=== PATIENT | male | born 1985 | race Hispanic/Latino ===

== ENCOUNTER 2025-04-05 11:19 | Emergency (ER) | payer OTHER, SELFPAY ==
[2025-04-05 11:20] VITALS: BP 139/100; PULSE 60; RESP 16; TEMP 36.7; O2SAT 100; BMI 24.3
--- NOTE | 2025-04-05 12:07 | RAD_ITS ---
PROCEDURE: FINGER(S) MIN 2 VIEWS 04/05/2025 REASON FOR EXAM: FINGER LACERATION TECHNIQUE: Procedure Code: RADFIN Modality: DX Procedure: FINGER(S) MIN 2 VIEWS Laterality: Left index finger. COMPARISON: None FINDINGS: Bones: No fracture seen. Joints: Normal alignment. Soft tissues: Soft tissue laceration. No radiopaque foreign body is seen. Other: RAD/Finger(s) Min 2 Views IMPRESSION: Soft tissue laceration. No radiopaque foreign body is seen. No fracture. Reading Location: [place] [id number]
--- NOTE | 2025-04-05 12:12 | EX.ED.UPPERE ---
HPI History of Present Illness Chief Complaint: Laceration Narrative Narrative: Patient is a 39-year-old male presenting to the emergency department for a left index finger laceration. Patient is Mongolian-speaking and friend is at bedside and both friend and patient feel comfortable with her translating. He was offered a iPad compensation intern but declines. Patient is unsure when his last tetanus shot was. He states that he works at [employer] and a machine cut his left finger. EMS was called and he was given 50 mcg of fentanyl prior to arrival. He denies any numbness to his finger. Denies any other injuries. He is right-handed. [facility] Medical History no medical history Home Medications ?Medication ?Instructions ?Recorded ?Last Taken ?Type cephalexin 500 mg capsule 500 mg PO Q6 5 days #20 CAPSULES 04/05/25 Unknown Rx Allergy/AdvReac Type Severity Reaction Status Date / Time No Known Allergies Allergy Verified 04/05/25 11:25 Social History Smoking Status: Never smoker ROS ROS ED ROS Narrative see HPI EXAM Physical Exam Narrative Exam Narrative: Vital signs: Reviewed General: Alert and orientedx3. No acute distress. Well appearing, nontoxic. HEENT: Head is normocephalic and atraumatic, sinuses nontender, pupils equal round and reactive. Nares are patent. Oropharynx and throat exams normal. Neck: Supple without lymphadenopathy nontender Cardiovascular: Regular rate and rhythm, no murmurs. No rubs or gallops. Normal S1 and S2 Respiratory: Clear to auscultation bilaterally. No wheezes, rales, rhonchi Abdominal: Soft and nontender. Normal bowel sounds. No guarding or rebound. Nonsurgical abdomen Extremities: There is a fairly deep laceration to the radial side of the dorsal left index finger extending from the distal portion of the proximal phalanx to the distal tip of the distal phalanx. There is no tendon involvement. No bone is exposed. No foreign body on wound exploration. Radial pulse intact. Patient has full extensor mechanisms of the DIP and PIP. Normal johnathan test. There is no nailbed involvement. No subungual hematoma. Normal sensation in radial, median and ulnar distributions. The rest of the physical exam is unremarkable Const Vital Signs: 04/05/25 11:20 Temperature 98.0 F Temperature Source Temporal Pulse Rate 60 Respiratory Rate 16 Blood Pressure 139/100 H Blood Pressure Mean 113 Pulse Ox 100 Oxygen Delivery Method Room Air MDM MDM MDM Narrative Medical decision making narrative: Patient is a 39-year-old male presenting to the emergency department for a finger laceration. Patient was seen and examined. Vitals are stable. Patient resting in bed comfortably in no acute distress. Patient's tetanus vaccine was updated. Offered something for pain control but patient declines at this time. X-ray imaging was ordered to rule out any fracture or radiopaque foreign body. X-ray reviewed by myself, no radiopaque foreign body or fractures. Radiology read in agreement. Patient was consented for a digital block and laceration repair. Wound was irrigated copiously. Thirteen 4-0 Ethilon simple erupted sutures were placed. Patient tolerated well. Patient was given extensive wound care instructions including keeping the finger clean and dry. He was instructed to watch for signs of infection which were discussed. He was placed in a finger splint to prevent any reopening of the wound or breakage of the sutures with any flexion. He will be started on prophylactic antibiotics given the fairly deep wound and unknown if the blade was clean. Patient discharged from the Emergency Department. I do not feel that the patient's evaluation reveals any acute reason for admission at this time. I instructed them to either follow-up with their primary care physician or promptly return to the Emergency Department for reevaluation should symptoms worsen or new symptoms develop. I explained what symptoms would indicate the need to return to the emergency department. Shared decision making was used. The patient voiced understanding of the treatment plan and is agreeable with it. Clinical impression: Finger laceration History & Record Review Discussion w/independent historian: Patient Discharge Plan Triage Chief Complaint: Laceration ED Provider: Yanely Caldera Dx/Rx/DC Orders Clinical Impression: Finger laceration Instructions: ED Laceration Extremity Prescriptions: New cephalexin 500 mg capsule 500 mg PO Q6 5 Days Qty: 20 0RF Primary Care Provider: Care Physician,No Primary Referrals: Rohith Chen MD [Med Staff - Active Staff, Family Practice] - 5-7 Days Care Physician,No Primary [Primary Care Provider, Medical] Activity Restrictions/Additional Instructions: Keep the wound clean and dry. Keep it in this finger splint for the next 5 days to help prevent any bending of the finger to help the skin heal correctly. Watch for signs of infection which include redness, drainage or warmth. If any of these occur you need to return to the emergency department immediately. Take the antibiotics as prescribed. You need to have the sutures removed in about 7 days by your primary care doctor. If you do not have 1 you can follow-up with the 1 below. Your evaluation in the Emergency Department did not reveal any acute reason for admission. However, I want to emphasize that you may be early in the course of a disease process or illness even if it is not present. For this reason you should follow-up within 24 hours for reevaluation with either your primary care physician or if necessary back here in the Emergency Department. You should return to the Emergency Department immediately if your symptoms worsen or new symptoms develop. Print Language: Mongolian Disposition Disposition: Home, Self Care Discharge Date/Time: 04/05/25 14:29
[2025-04-05 12:19] VITALS: BP 132/81; PULSE 84
[2025-04-05] MEDS: Lidocaine 2% (20 ml mdv) 20 ML Vial 10 ML INFILT (12:37)
[2025-04-05 13:00] VITALS: BP 122/74
[2025-04-05 14:07] VITALS: BP 114/62; PULSE 74; RESP 16; TEMP 37; O2SAT 100
--- NOTE | 2025-04-05 14:28 | ED.RN ---
Discharge instructions were reviewed with patient with our [employer] M[employer]. All questions answered. Pt. instructed to go to [facility] at this time to get drug and alcohol screen for workers comp and was given address to building. Pt. also give work status for, one for employer and one for him.
== END 2025-04-05 14:29 | disposition home or self-care (01) ==
PROVIDERS: Emergency Provider Student in an Organized Health Care Education/Training Program; Visit Provider Student in an Organized Health Care Education/Training Program
DX: S61.211A Laceration without foreign body of left index finger without damage to nail, initial encounter (principal); W31.9XXA Contact with unspecified machinery, initial encounter; Y93.G1 Activity, food preparation and clean up; Y92.89 Other specified places as the place of occurrence of the external cause; Y99.0 Civilian activity done for income or pay; Z23 Encounter for immunization
CPT/HCPCS: 12002; 73140; 90715; 99285